=== PATIENT | female | born 1940 | race Caucasian/White ===

== ENCOUNTER 2019-06-05 09:56 | Outpatient (CLI) | payer MEDICARE, OTHER, SELFPAY ==
--- NOTE | ~2019-06-05 | US_ITS ---
EXAMINATION: US venous doppler [facility] DATE: 06/05/2019 10:35 INDICATION: Left lower limb swelling and pain TECHNIQUE: Mcbride scale images without and with compression and Doppler images of the left lower extrem ity veins were obtained. COMPARISON: None. FINDINGS: The left common femoral vein, profunda femoral vein, femoral vein, popliteal vein, peroneal trunk, posterior tibial veins, and greater saphenous vein are patent. IMPRESSION: 1. Patent left lower extremity veins. No evidence of deep venous thrombosis. Reviewed, dictated and finalized at location A.
--- NOTE | ~2019-06-05 | XR_ITS ---
EXAMINATION: XR tibia fibula RT 2V INDICATION: Sore on the posterior aspect of the right mid to lower leg TECHNIQUE: Two views of the right tibia and fibula are obtained. COMPARISON: None available FINDINGS: There is no fracture, dislocation, or subluxation. 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 No underlying osseous abnormality is identified. There are changes of total knee arthroplasty. IMPRESSION: 1. Soft tissue swelling without acute osseous abnormality. Reviewed, dictated and finalized at location A.
== END 2019-06-05 09:57 | disposition home or self-care (01) ==
LOC: ANHIMG 10:05
PROVIDERS: PCP Emergency Medicine; Visit Provider Emergency Medicine
DX: M79.89 Other specified soft tissue disorders (principal); L98.9 Disorder of the skin and subcutaneous tissue, unspecified
CPT/HCPCS: 73590; 93971

== ENCOUNTER → 2019-10-14 14:07 | Outpatient (CLI) | payer MEDICARE, OTHER, SELFPAY ==
--- NOTE | ~2019-10-14 | XR_ITS ---
EXAMINATION: XR shoulder RT min 2V DATE: 10/14/2019 14:40 INDICATION: Right shoulder pain. TECHNIQUE: 5 views of right shoulder were obtained. COMPARISON: None. FINDINGS: Bone alignment is normal. No fracture. There is mild osteoarthritis of glenohumeral joint a nd severe osteoarthritis of acromioclavicular joint. IMPRESSION: 1. Polyarticular osteoarthritis. Reviewed, dictated and finalized at location B.
--- NOTE | ~2019-10-14 | XR_ITS ---
EXAMINATION:XR cervical spine 4-5V DATE: 10/14/2019 14:43 INDICATION: Neck pain TECHNIQUE: AP, lateral, left and right oblique and odontoid views of the cervical spine are provided. COMPARISON: None FINDINGS: 2 mm anterolisthesis C3 on C4 and C4 on C5. Odontoid is intact. Normal atlantoaxial interval. Verteb ral body heights are normal. Moderate disc height loss at C6-C7 and mild disc height loss at C4-C5 an d C5-C6. Severe facet osteoarthritis on the right at C3-C4 and on the left at C4-C5. Mild to moderate facet osteoarthritis at several of the remaining facet joints about the left and right. Severe uncov ertebral osteoarthritis on the left at C6-C7 and moderate uncovertebral osteoarthritis on the right a t C6-C7 and bilaterally at C5-C6. Mild uncovertebral osteoarthritis in the more cephalad cervical spi ne. Together this results in mild to moderate neural foraminal stenosis bilaterally at C6-C7 and mild bilaterally at C4-C5 and C5-C6 and on the right at C3-C4. Prevertebral soft tissues are normal. IMPRESSION: 1. Moderate cervical spondylosis. Reviewed, dictated and finalized at location A.
== END ==
DX: M47.22 Other spondylosis with radiculopathy, cervical region (principal); M19.011 Primary osteoarthritis, right shoulder
CPT/HCPCS: 72050; 73030

== ENCOUNTER 2020-08-28 05:54 | Emergency (ER) | payer MEDICARE, OTHER, SELFPAY ==
--- NOTE | ~2020-08-28 | XR_ITS ---
XR foot RT min 3V DATE: 08/28/2020 06:44 INDICATION: Fall, pain and swelling of lateral aspect of foot TECHNIQUE: Portable 4 view examination COMPARISON: None FINDINGS: There is a nondisplaced transverse linear fracture of proximal shaft of the fifth metatarsa l bone. Plantar calcaneal enthesopathy. Prominent osteoarthritic change at the first metatarsophalangeal joint. IMPRESSION: Transverse nondisplaced recent fracture of proximal shaft of fifth metatarsal bone Prominent osteoarthritis at first metatarsophalangeal joint Plantar calcaneal enthesopathy Reviewed, dictated and finalized at location A.
--- NOTE | ~2020-08-28 | XR_ITS ---
XR ankle RT min 3V DATE: 08/28/2020 06:44 INDICATION: Fall. Right ankle pain and swelling TECHNIQUE: Portable 4 view examination COMPARISON: None FINDINGS: No fracture or dislocation of the ankle or disruption of the ankle mortise. No periosteal r eaction or bone destruction. There is a transverse lucency at the very proximal shaft of fifth metatarsal bone compatible with rec ent nondisplaced fracture. Plantar calcaneal enthesopathy. IMPRESSION: Recent linear nondisplaced fracture of the very proximal shaft of the fifth metatarsal morro ne Plantar calcaneal enthesopathy Reviewed, dictated and finalized at location A. IMPRESSION: Recent linear nondisplaced fracture of the very proximal shaft of t he fifth metatarsal bone Plantar calcaneal enthesopathy
[2020-08-28 06:01] VITALS: BP 123/64; PULSE 70; RESP 16; TEMP 36.5; O2SAT 99
--- NOTE | 2020-08-28 06:18 | ED.GENADULT ---
HPI - General Adult General Chief complaint: Fall <Preet Chang MD - Last Filed: 08/28/20 06:22> Stated complaint: right foot pain/swollen <Preet Chang MD - Last Filed: 08/28/20 06:22> Time Seen by Provider: 08/28/20 06:12 <Preet Chang MD - Last Filed: 08/28/20 06:22> History of Present Illness HPI narrative: Patient 79-year-old female presents the emergency department with chief complaint of fall. Patient reports she was walking down 4 steps lost her footing and fell. Patient reports that she has pain mostly at the base of the fifth metatarsal reports that swollen reports whenever she puts weight on it it hurts. The patient reports that she bumped her right forearm against the wall and has a small skin tear the patient reports she cleaned the wound put a nonadherent dressing and a bandage on it. The patient reports that she is up-to-date on her tetanus status patient reports she did not strike her head denies loss of consciousness denies neck pain. The patient reports she has past medical history significant for hypertension. <Preet Chang MD - Last Filed: 08/28/20 06:22> Related Data Home medications: Home Medications Medication Instructions Recorded Confirmed cholecalciferol (vitamin D3) 1,250 50,000 unit PO WEEKLY 01/03/19 03/06/20 mcg (50,000 unit) capsule denosumab 60 mg/mL subcutaneous See Rx Instructions .ROUTE .COMPLEX 01/03/19 03/06/20 syringe scopolamine base 1 mg over 3 days See Rx Instructions .ROUTE 01/03/19 03/06/20 transdermal patch .COMPLEX PRN <Preet Chang MD - Last Filed: 08/28/20 06:22> Allergies/adverse reactions: Allergies Allergy/AdvReac Type Severity Reaction Status Date / Time azithromycin Allergy Unknown Hives Verified 08/28/20 07:38 cephalexin Allergy Unknown Hives Verified 08/28/20 07:38 <Preet Chang MD - Last Filed: 08/28/20 06:22> Review of Systems Review of Systems: Narrative: A 10 system review of systems was completed on the patient and is negative except for what is stated in the HPI. Nursing and ancillary documentation was reviewed. <Preet Chang MD - Last Filed: 08/28/20 06:22> [facility] Past Medical History Medical History: Medical History (Updated 08/28/20 @ 08:29 by Semaj Goncalves MD) CKD (chronic kidney disease), stage III Depression HLD (hyperlipidemia) Osteoporosis <Preet Chang MD - Last Filed: 08/28/20 06:22> Family History Family History: Family History Mother Family history of respiratory disorder Patient's mother is , Onset Age: 92 Sibling Family history of lung cancer Father Patient's father is , Onset Age: 60 <Preet Chang MD - Last Filed: 08/28/20 06:22> Social History Social History: Social History Smoking status: Never smoker Alcohol intake: never Gender identity (if verbalized by the patient): Female <Preet Chang MD - Last Filed: 08/28/20 06:22> Exam Narrative: Exam Narrative: GENERAL: Well-appearing, well-nourished, and in no acute distress. HEAD: Normocephalic, atraumatic. EYES: PERRLA and EOMI. ENT: Nares clear, no rhinorrhea or epistaxis. Mucous membranes moist. NECK: Supple. CHEST: Clear to auscultation. No respiratory distress. HEART: Regular rate and rhythm. No murmur heard. Normal peripheral pulses. ABDOMEN: Soft, nontender, nondistended, normal active bowel sounds. EXTREMITIES: Normal range of motion. No edema. There is a small 1 cm skin tear present to the right forearm, there is tenderness and swelling at the base of the fifth metatarsal SKIN: Warm, dry, no rash. NEURO: No focal deficits. Alert and oriented x3. PSYCH: Normal mood and affect. <Preet Chang MD - L
[2020-08-28] MEDS: HYDROcodone/acetaminophen (*CRX) 5-325 MG TABLET 1 TAB PO (06:26)
[2020-08-28 07:40] VITALS: BP 115/66; PULSE 69; RESP 16; O2SAT 100
--- NOTE | 2020-08-28 07:42 | PC.NURSE ---
unable to add wound assessment to worklist. rt outer foot slightly red and swollen but no bruising or open wound.
[2020-08-28 08:39] VITALS: BP 141/75; PULSE 73; RESP 16; O2SAT 100
== END 2020-08-28 08:43 | disposition home or self-care (01) ==
PROVIDERS: Emergency Provider Emergency Medicine; PCP Emergency Medicine
DX: S92.354A Nondisplaced fracture of fifth metatarsal bone, right foot, initial encounter for closed fracture (principal); N18.30 Chronic kidney disease, stage 3 unspecified; E78.5 Hyperlipidemia, unspecified; M81.0 Age-related osteoporosis without current pathological fracture; M19.071 Primary osteoarthritis, right ankle and foot; M77.31 Calcaneal spur, right foot; W10.9XXA Fall (on) (from) unspecified stairs and steps, initial encounter
CPT/HCPCS: 73610; 73630; 99284; A9270